=== PATIENT | female | born 1990 | race Caucasian/White ===

== ENCOUNTER 2016-04-12 23:14 | Inpatient (IN) | payer OTHER ==
[~2016-04-12] VITALS: Ht 175.3 cm; Wt 97.5 kg
[2016-04-12 23:28] VITALS: BP 121/83; PULSE 96; RESP 18; TEMP 97.6
[2016-04-13] MEDS ORDERED: OXYTOCIN/NORMAL SALINE 1,000 ML IV SCH (00:18)
[2016-04-13] MEDS ORDERED: LR 1,000 ML IV ONE (00:18)
[2016-04-13] MEDS ORDERED: TERBUTALINE SULFATE 1 MG/ML VIAL SUBCUT ONE (00:30)
[2016-04-13] MEDS ORDERED: NALBUPHINE HCL 10 MG/ML AMP IVP PRN (00:30)
[2016-04-13] MEDS ORDERED: AMPICILLIN SODIUM 2 GM VIAL ONE (00:48)
[2016-04-13] MEDS: LR 1,000 ML IV SCH ×3 (00:55→06:44)
[2016-04-13] MEDS ORDERED: AMPICILLIN SODIUM 2 GM in NS 100 ML IV ONE (01:00)
[2016-04-13 01:43] LABS: BASOPHILS # (AUTO) 0.1 K/uL (0.0-0.2); BASOPHILS % (AUTO) 0.9 % (0.0-2.0); EOSINOPHILS # (AUTO) 0.2 K/uL (0.0-0.4); EOSINOPHILS % (AUTO) 1.6 % (0.0-4.0); HEMATOCRIT 37.4 % (36-48); HEMOGLOBIN 12.8 g/dL (12.0-16.0); LYMPHOCYTES # (AUTO) 2.1 K/uL (1.0-5.5); LYMPHOCYTES % (AUTO) 15.9 % (20.5-51.5); MEAN CORPUSCULAR HEMOGLOBIN 31 pg (27-31); MEAN CORPUSCULAR HGB CONC 34 % (32-36); MEAN CORPUSCULAR VOLUME 90 fL (79.0-98.0); MONOCYTES # (AUTO) 0.9 K/uL (0.0-1.0); NEUTROPHILS # (AUTO) 9.7 K/uL (1.8-7.7); NEUTROPHILS % (AUTO) 74.6 % (40.0-70.0); PLATELET COUNT (AUTO) 261 K/uL (130-430); RED BLOOD CELL COUNT(AUTO) 4.17 MIL/uL (4.2-6.2); RED CELL DISTRIBUTION WIDTH 12.7 % (9.0-15.0)
[2016-04-13] MEDS ORDERED: AMPICILLIN SODIUM 1 GM VIAL ONE ×2 (04:18→08:53)
[2016-04-13] MEDS: AMPICILLIN SODIUM 1 GM in NS 50 ML IV SCH ×2 (04:57→12:55)
[2016-04-13] MEDS ORDERED: fentaNYL CITRATE/PF 100 MCG/2 ML AMP ONE (05:50)
[2016-04-13] MEDS ORDERED: FENT2mCg/mL-ROPIVA0.2%/NS EPID 150 ML EP ONE (05:50)
[2016-04-13] MEDS ORDERED: LR 500 ML IV ONE (06:32)
[2016-04-13] MEDS ORDERED: FENT2mCg/mL-ROPIVA0.2%/NS EPID 150 ML EP SCH (06:45)
[2016-04-13] MEDS ORDERED: ePHEDrine sulfate 50 MG/ML VIAL IVP PRN (06:45)
[2016-04-13] MEDS ORDERED: fentaNYL CITRATE/PF 100 MCG/2 ML AMP EP ONE (06:45)
[2016-04-13] MEDS ORDERED: ANUSOL 1 EA SUPP.RECT (PREPARATION H) RC PRN (13:30)
[2016-04-13] MEDS ORDERED: SENNOSIDES/DOCUSATE SODIUM 1 TAB TABLET(SENOKOT-S) PO PRN (13:30)
[2016-04-13] MEDS ORDERED: METHYLERGONOVINE MALEATE 0.2 MG TABLET PO PRN (13:30)
[2016-04-13] MEDS ORDERED: OXYCODONE/ACETAMINOPHEN 5-325 TABLET PO PRN ×2 (13:30)
[2016-04-13] MEDS ORDERED: DERMOPLAST SPRAY TP PRN (13:30)
[2016-04-13] MEDS ORDERED: DOCUSATE SODIUM 100 MG CAPSULE PO PRN (13:30)
[2016-04-13] MEDS ORDERED: OXYTOCIN/NORMAL SALINE 1,000 ML IV ONE (13:30)
[2016-04-13] MEDS ORDERED: GLYCERIN/WITCH HAZEL (TUCKS PADS) TP PRN (13:30)
[2016-04-13] MEDS ORDERED: HYDROCORTISONE 0.5%, 28.35 GM TOPICAL CREAM TP PRN (13:30)
[2016-04-13] MEDS ORDERED: LANOLIN 7 GM OINT. TP PRN (13:30)
[2016-04-13] MEDS ORDERED: METHYLERGONOVINE MALEATE 0.2 MG/ML AMP ONE (13:34)
[2016-04-13] MEDS: IBUPROFEN 800 MG TABLET PO PRN ×2 (14:11→20:08)
[2016-04-13] MEDS ORDERED: MINERAL OIL 30 ML UDC PO ONE (17:53)
[2016-04-13] MEDS ORDERED: ROPIVACAINE 40 MG/20 ML AMP EP ONE (17:54)
[2016-04-13] MEDS ORDERED: TEMAZEPAM 15 MG CAPSULE PO PRN (21:00)
[2016-04-14 09:40] LABS: HEMATOCRIT 35.7 % (36-48); MEAN CORPUSCULAR HEMOGLOBIN 31 pg (27-31); MEAN CORPUSCULAR HGB CONC 34 % (32-36); MEAN CORPUSCULAR VOLUME 92 fL (79.0-98.0); PLATELET COUNT (AUTO) 223 K/uL (130-430)
[2016-04-14 11:58] LABS: ATYPICAL LYMPHOCYTES % 0 % (0-0); BAND % (MANUAL) 0 % (0-6); BASOPHILS % (MANUAL) 0 % (0-2); EOSINOPHILS % (MANUAL) 0 % (0-7); LYMPHOCYTES % (MANUAL) 14 % (20-46); MONOCYTES % (MANUAL) 5 % (0-11)
[2016-04-14] MEDS: IBUPROFEN 800 MG TABLET PO PRN (12:25)
== END 2016-04-14 17:30 | disposition home or self-care (01) | DRG 775 ==
LOC: OBSVTOIN 23:14 → SPU 23:14
PROVIDERS: ADMIT Specialist; ATTEND Specialist
PROC: 10E0XZZ Delivery of Products of Conception, External Approach (ICD-10-PCS; principal; 2016-04-12)
PROC: 0KQM0ZZ Repair Perineum Muscle, Open Approach (ICD-10-PCS; 2016-04-12)
PROC: 3E0S3CZ (ICD-10-PCS; 2016-04-12)
PROC: 00HU33Z Insertion of Infusion Device into Spinal Canal, Percutaneous Approach (ICD-10-PCS; 2016-04-12)
DX: O99.824 Streptococcus B carrier state complicating childbirth (principal); Z37.0 Single live birth; O42.913 Preterm premature rupture of membranes, unspecified as to length of time between rupture and onset of labor, third trimester; O70.1 Second degree perineal laceration during delivery; Z3A.39 39 weeks gestation of pregnancy
CPT/HCPCS: 36415; 81002-TC; 85007; 85025; 85027; 86592; 86870; 86886; 86900; 86901; J0290; J2210; J2590; J2790; J2795; J3010; J7120